=== PATIENT | female | born 1960 | race Asian ===

== ENCOUNTER 2018-08-21 10:29 | Emergency (ER) | payer OTHER ==
[2018-08-21 10:36] VITALS: TEMP 98.4; BMI 26.4
--- NOTE | 2018-08-21 11:23 | PDOC ---
History of Present Illness - General Chief Complaint: Pain Stated Complaint: ABD PAIN Time Seen by Provider: 08/21/18 10:45 History Source: Patient Exam Limitations: No Limitations - History of Present Illness Travel History: No Initial Comments: 08/21/18 10:48 58-year-old female presents to the ED with complaints of lower abdominal cramping and pressure for the past 4 days without nausea, vomiting, fever, chills diarrhea constipation or urinary complaints. Patient states initially thought it was her hip and so applied heating pad with no relief. Patient denies recent travel or recent illness but states history of fibroids with removal and a fluid collection numerous years ago to area requiring drainage. Timing/Duration: reports: constant Quality: reports: mild, moderate, cramping, sharpness Abdominal Pain Onset Location: reports: RLQ, LLQ Activities at Onset: reports: none Aggravating Factors: improves with: None Alleviating Factors: improves with: None Past History - Travel Traveled outside of the country in the last 30 days: No Close contact w/someone who was outside of country & ill: No - Past Medical History Allergies/Adverse Reactions: Allergies Allergy/AdvReac Type Severity Reaction Status Date / Time No Known Allergies Allergy Verified 08/21/18 10:35 Home Medications: Ambulatory Orders NK [No Known Home Medication] 08/21/18 COPD: No - Reproductive History Uterine Fibroids: Yes (removed) - Suicide/Smoking/Psychosocial Hx Smoking History: Never smoked Information on smoking cessation initiated: No Hx Alcohol Use: No Drug/Substance Use Hx: No Patient Lives Alone: No Lives with/in: spouse/SO Review of Systems - Review of Systems Able to Perform ROS?: Yes Constitutional: No: Symptoms Reported HEENTM: No: Symptoms Reported Respiratory: No: Symptoms reported Cardiac (ROS): No: Symptoms Reported ABD/GI: Yes: Abdominal cramping : No: Symptoms Reported Musculoskeletal: No: Symptoms Reported Integumentary: No: Symptoms Reported Neurological: No: Symptoms reported Endocrine: No: Symptoms Reported Hematologic/Lymphatic: No: Symptoms Reported *Physical Exam - Vital Signs Last Vital Signs Temp Pulse Resp BP Pulse Ox 98.4 F 70 17 141/85 99 08/21/18 10:34 08/21/18 10:34 08/21/18 10:34 08/21/18 10:34 08/21/18 10:34 - Physical Exam General Appearance: Yes: Nourished, Appropriately Dressed. No: Apparent Distress HEENT: negative: Pale Conjunctivae Neck: positive: Normal Thyroid Respiratory/Chest: positive: Lungs Clear, Normal Breath Sounds. negative: Respiratory Distress, Accessory Muscle Use Cardiovascular: positive: Regular Rhythm, Regular Rate. negative: Murmur Gastrointestinal/Abdominal: positive: Soft, Tenderness (right lower quadrant/ midsuprapubic / left lower quadrant) Extremity: positive: Normal Inspection Integumentary: positive: Normal Color, Warm, Moist Neurologic: positive: Motor Strength 5/5 (ambulatory) ED Treatment Course - LABORATORY CBC & Chemistry Diagram: 08/21/18 12:10 08/21/18 12:10 - RADIOLOGY Radiology Studies Ordered: Category Date Time Status ABDOMEN & PELVIS CT WITH CONTR [CT] Stat CT Scan 08/21/18 10:58 Ordered Medical Decision Making - Medical Decision Making 08/21/18 11:01 Chief complaint: Lower abdominal cramping without associated symptoms history of fibroids and fluid collection numerous years to area requiring drainage. Exam: Left lower quadrant right lower quadrant and left /mid suprapubic tenderness. No CVA tenderness. Vital signs stable. Plan: Labs, urine and abdominal CT with contrast ordered 08/21/18 16:32 Laboratory Tests 08/21/18 08/21/18 08/21/18 11:12 12:10 12:10 WBC 6.5 Hgb 14.2 Hct 42.1 Plt Count 454 H MPV 7.4 L Neutrophils % 64.1 Sodium 141 Potassium 4.2 Chloride 109 H Carbon Dioxide 27 Anion Gap 5 L BUN 12.7 Creatinine 0.8 Random Glucose 113 H Calcium 9.0 Total Bilirubin 0.3 AST 76 H ALT 164 H Alkaline Phosphatase 114 Total Protein 7.0 Albumin 3.7 Ur Specific [place] 1.004 L Urine Glucose (UA) Negative Urine Ketones Negative Urine Nitrite Negative Urine Bilirubin Negative Ur Leukocyte Esterase Negative 08/21/18 16:33 trans vag u/s ordered. 08/21/18 16:[address] evidence of acute appendicitis diverticulitis in pneumoperitoneum bowel structure intra-abdominal abscess. There is no evidence of acute bony pathology. There is no evidence of pelvic masses fluid collection or lymphadenopathy. The uterus has been removed. Due to location of pain patient will be ordered for a transvaginal ultrasound to visualize adnexa and ovaries. 08/21/18 17:20 Ultrasound shows status post hysterectomy ovaries are not identified and there is no evidence of pelvic masses or fluid collection. Otherwise normal pelvic sonogram in a patient status post hysterectomy. *DC/Admit/Observation/Transfer Diagnosis at time of Disposition: Abdominal pain - Discharge Dispostion Disposition: HOME Condition at time of disposition: Good - Referrals Referrals: Phoebe Manzano MD [Primary Care Provider] - - Patient Instructions Printed Discharge Instructions: DI for Abdominal Pain-Adult Additional Instructions: Please take Tylenol Extra Strength 9975 mg or Motrin 600 mg for discomfort. You may also consider putting a heating pad to the affected area. If symptoms continue or worsen you may consider following up with your doctor and/or material reprocessing associate - Post Discharge Activity
[2018-08-21 11:31] LABS: PH,URINE 6.5 (5.0-8.0); URINE APPEARANCE CLEAR; URINE BILIRUBIN NEGATIVE (NEGATIVE); URINE COLOR YELLOW; URINE GLUCOSE (UA) NEGATIVE (NEGATIVE); URINE KETONE NEGATIVE (NEGATIVE); URINE LEUK ESTERASE NEGATIVE (NEGATIVE); URINE NITRITE NEGATIVE (NEGATIVE); URINE PROTEIN NEGATIVE (NEGATIVE); URINE UROBILINOGEN 0.2 mg/dL (0.2-1.0)
[2018-08-21 12:40] LABS: BASO % 0.3 % (0-2.0); EOS % 3.5 % (0-4.5); HEMATOCRIT 42.1 % (32.4-45.2); HEMOGLOBIN 14.2 GM/dL (10.7-15.3); LYMPH % 25.9 % (8-40); MCH 29.7 pg (25.7-33.7); MCHC 33.7 g/dl (32.0-36.0); MEAN CELL VOLUME 87.9 fl (80-96); MEAN PLT VOLUME 7.4 fl (7.5-11.1); MONO % 6.2 % (3.8-10.2); NEUT % 64.1 % (42.8-82.8); PLATELET COUNT 454 K/MM3 (134-434); RBC 4.79 M/mm3 (3.60-5.2); RDW 13.7 % (11.6-15.6); WHITE BLOOD COUNT 6.5 K/mm3 (4.0-10.0)
[2018-08-21 13:14] LABS: ALBUMIN 3.7 g/dl (3.4-5.0); BILIRUBIN,TOTAL 0.3 mg/dL (0.2-1); BLOOD UREA NITROGEN 12.7 mg/dL (7-18); CREATININE 0.8 mg/dL (0.55-1.3); POTASSIUM 4.2 mmol/L (3.5-5.1)
[2018-08-21 17:27] VITALS: BP 131/87; PULSE 68
== END 2018-08-21 17:30 | disposition home or self-care (01) ==
LOC: JER 10:29
DX: R10.9 Unspecified abdominal pain (principal); Z90.79 Acquired absence of other genital organ(s)
CPT/HCPCS: 36415; 74177-TC; 76830-TC; 80053; 81003; 85025; 87086; 99282-25

== ENCOUNTER 2020-06-14 23:32 | Emergency (ER) | payer OTHER ==
[2020-06-14 23:50] VITALS: BP 145/90; PULSE 92; TEMP 97.8; BMI 23.3
[2020-06-15] MEDS ORDERED: ACETAMINOPHEN 325 MG TABLET (FP) PO ONE (00:09)
[2020-06-15] MEDS ORDERED: IBUPROFEN 400 MG TABLET (FP) PO ONE ×2 (00:09→00:23)
[2020-06-15] MEDS ORDERED: ACETAMINOPHEN 325 MG TABLET (FP) ONE (00:23)
== END 2020-06-15 00:58 | disposition home or self-care (01) ==
LOC: JER 23:32
DX: R07.89 Other chest pain (principal)
CPT/HCPCS: 71046-TC-FY; 93005; 93010; 99284-25

== ENCOUNTER 2023-11-28 04:40 | Day surgery (SDC) | payer OTHER ==
[2023-11-25 08:33] VITALS: BMI 26.9
[2023-11-28 08:46] VITALS: TEMP 98.6
[2023-11-28 09:02] VITALS: RESP 18
[2023-11-28 09:16] VITALS: BP 109/58
[2023-11-28 09:51] VITALS: PULSE 65
== END 2023-11-28 09:30 | disposition home or self-care (01) ==
LOC: JASU-ENDO 04:40
PROVIDERS: ATTEND Internal Medicine Gastroenterology
PROC: 0DJD8ZZ Inspection of Lower Intestinal Tract, Via Natural or Artificial Opening Endoscopic (ICD-10-PCS; principal; 2023-11-28 08:00)
DX: Z12.11 Encounter for screening for malignant neoplasm of colon (principal); Z86.0100 Personal history of colon polyps, unspecified